=== PATIENT | female | born 1950 | race Two or more races ===

== ENCOUNTER 2022-04-18 09:25 | Outpatient (CLI) | payer MEDICARE, OTHER ==
[2022-04-18] MEDS ORDERED: UREA 10% -AHA 4% CREAM 57 GM TUBE ONE (10:04)
== END 2022-04-18 23:59 | disposition home or self-care (01) ==
LOC: WOU 09:25
PROVIDERS: ATTEND Podiatrist Foot & Ankle Surgery
DX: L60.3 Nail dystrophy (principal); L84 Corns and callosities; L85.3 Xerosis cutis; I10 Essential (primary) hypertension; Z87.891 Personal history of nicotine dependence; Z79.899 Other long term (current) drug therapy
CPT/HCPCS: G0463

== ENCOUNTER 2022-07-04 09:00 | Outpatient (CLI) | payer MEDICARE, OTHER ==
[2022-07-04] MEDS ORDERED: UREA 10% -AHA 4% CREAM 57 GM TUBE ONE (09:15)
== END 2022-07-04 23:59 | disposition home or self-care (01) ==
LOC: WOU 09:00
PROVIDERS: ATTEND Podiatrist Foot & Ankle Surgery
DX: L84 Corns and callosities (principal); L60.3 Nail dystrophy; L85.3 Xerosis cutis; Z79.899 Other long term (current) drug therapy; I10 Essential (primary) hypertension; M79.674 Pain in right toe(s)
CPT/HCPCS: G0463

== ENCOUNTER 2022-09-05 09:20 | Outpatient (CLI) | payer MEDICARE, OTHER | END 2022-09-05 23:59 | disposition home or self-care (01) | LOC: WOU 09:20 | PROVIDERS: ATTEND Podiatrist Foot & Ankle Surgery | DX: L60.3 Nail dystrophy (principal); L84 Corns and callosities; L85.3 Xerosis cutis; M79.675 Pain in left toe(s); M79.674 Pain in right toe(s); Z79.899 Other long term (current) drug therapy | CPT/HCPCS: G0463 ==

== ENCOUNTER 2022-10-31 09:50 | Outpatient (CLI) | payer MEDICARE, OTHER ==
[2022-10-31] MEDS ORDERED: LIDOCAINE HCL/MPF 1% 30 ML VIAL IJ ONE (10:45)
[2022-10-31] MEDS ORDERED: BACI/NEOM/POLY B OINT PKT 1 UDPKT PACKET ONE (11:16)
== END 2022-10-31 23:59 | disposition home or self-care (01) ==
LOC: WOU 09:50
PROVIDERS: ATTEND Podiatrist Foot & Ankle Surgery
DX: L84 Corns and callosities (principal); L60.3 Nail dystrophy; L85.3 Xerosis cutis; M79.675 Pain in left toe(s); M79.674 Pain in right toe(s); Z79.899 Other long term (current) drug therapy
CPT/HCPCS: G0463; A6454; J3490

== ENCOUNTER 2022-11-03 17:50 | Inpatient (IN) | payer MEDICARE, OTHER ==
[~2022-11-03] VITALS: Ht 167.6 cm; Wt 86.2 kg
[2022-11-03 19:00] VITALS: BP 118/69
[2022-11-03] MEDS ORDERED: DONE10TA11 PO (19:00)
[2022-11-03] MEDS ORDERED: SACU1TAB PO (19:00)
[2022-11-03] MEDS ORDERED: FLUT1BLS6 INH (19:00)
[2022-11-03] MEDS ORDERED: HYDR-4076 PO (19:00)
[2022-11-03] MEDS ORDERED: GABA600T12 PO (19:00)
[2022-11-03] MEDS ORDERED: PRAM1TAB7 PO (19:00)
[2022-11-03] MEDS ORDERED: GEMTESA PO (19:00)
[2022-11-03] MEDS ORDERED: IPRA3AMP23 IH (19:00)
[2022-11-03] MEDS ORDERED: HYDR-3980 PO (19:00)
[2022-11-03] MEDS ORDERED: CLON0.5T4 PO (19:00)
--- NOTE | 2022-11-03 19:05 | NUR ---
RN NOTE: ADMITTED A 71-Y/O, FEMALE, FROM [facility]. ADMITTED ON A 5150 HOLD FOR DTS FOR SUICIDAL IDEATION. UPON FACE TO FACE EVALUATION, PATIENT IS ALERT AND ORIENTED X3, PATIENT IS ANXIOUS, RESTLESS, GUARDED, NEEDY, DEMANDING, MANIPULATIVE AND HYPERVERBAL. DENIES SI/HI/AVH AT THIS TIME. SKIN ASSESSMENT DONE. ALL BELONGINGS WERE SCREENED FOR CONTRABAND. PATIENT REFUSED TO SIGN ALL ADMITTING/CONSENT PAPERWORK DUE TO PARANOIA. PATIENT'S RIGHTS WERE DISCUSSED AND BOOKLET WAS GIVEN. CONTACTED DR. HOYOS AND HOSPITALIST NATALIIA CABAN AND INFORMED THEM OF THE ADMISSION. BED IN LOWEST POSITION, LOCKED. SAFETY PRECAUTIONS MAINTAINED. WILL CONTINUE TO MONITOR Q15 MINS FOR MOOD, SAFETY AND BEHAVIOR.
[2022-11-03] MEDS ORDERED: ACETAMINOPHEN 325 MG TABLET PO PRN (20:00)
[2022-11-03] MEDS ORDERED: MAGNESIUM HYDROXIDE 30 ML UDC PO PRN (20:00)
[2022-11-03] MEDS ORDERED: BLOOD SUGAR DIAGNOSTIC 1 EACH STRIP IN ONE (20:00)
[2022-11-03 21:33] VITALS: BP 118/69
[2022-11-03] MEDS ORDERED: IPRATROPIUM NEB FS 0.5 MG/2.5 ML AMPUL.NEB NEB PRN (23:30)
[2022-11-03] MEDS ORDERED: ALBUTEROL FS 2.5 MG/3 ML VIAL.NEB NEB PRN (23:30)
[2022-11-04] MEDS: TEMAZEPAM 7.5 MG CAPSULE PO PRN (00:23)
--- NOTE | 2022-11-04 07:30 | NUR ---
RN OPENING NOTES RECEIVED PATIENT SITTING ON BED AND A/O X3. ON ROOM AIR TOLERATING WELL. NO SOB NOTED. NOT IN DISTRESS. PATIENT IS VERY NEEDY, HYPERVERBAL AND DEMANDING. PATIENT IS CONCERNED ABOUT HER GEMTESA, ENTRESTO AND TRELOGY MEDICATIONS, WILL FOLLOW-UP. AMBULATORY WITH WALKER. DENIES SI/HI AT THIS TIME. SAFETY MEASURES IN PLACED. CALL LIGHT WITHIN REACH. BED ON LOWEST LOCKED POSITION, SIDE RAILS UP X2. WILL CONTINUE TO MONITOR.
[2022-11-04 08:00] VITALS: BP 154/65
--- NOTE | 2022-11-04 08:10 | NUR ---
WOUND CARE CONSULT: PT PRESENTS WITH RT GREAT TOE DRY WOUND WITH SWELLING, PRESENT ON ADMISSION. DR BERNAL CALLED FOR DPM CONSULT. IN AGREEMENT WITH PLAN OF CARE.
[2022-11-04] MEDS: PRAMIPEXOLE DI-HCL 0.25 MG TABLET PO SCH ×2 (08:54→16:33)
[2022-11-04] MEDS: GABAPENTIN 300 MG CAPSULE PO SCH ×3 (08:54→16:33)
[2022-11-04] MEDS: hydrALAZINE HCL 25 MG TABLET PO SCH ×2 (08:55→17:00)
[2022-11-04] MEDS: DONEPEZIL 5 MG TABLET PO SCH (08:55)
[2022-11-04] MEDS: HYDROCODONE/APAP 10/325MG TABLET PO SCH ×3 (08:55→16:30)
[2022-11-04 09:06] LABS: BASOPHILS % (AUTO) 0.2 % (0.0-2.0); EOSINOPHILS % (AUTO) 0.7 % (0.0-6.0); HEMATOCRIT 44 % (33-45); HEMOGLOBIN 14.1 g/dL (11.5-14.8); LYMPHOCYTES % (AUTO) 12.6 % (20.0-44.0); MEAN CORPUSCULAR HGB CONC 32 g/dl (31.0-36.0); MEAN CORPUSCULAR VOLUME 83 fL (82-100); MONOCYTES # (AUTO) 0.6 K/uL (0.1-1.30); MONOCYTES % (AUTO) 7.3 % (2.0-12.0); NEUTROPHILS # (AUTO) 6.6 K/uL (1.8-8.9); NEUTROPHILS % (AUTO) 79.2 % (43.0-81.0); PLATELET COUNT (AUTO) 355 K/uL (150-450); RED BLOOD CELL COUNT(AUTO) 5.28 MIL/uL (4.0-5.2); WHITE BLOOD COUNT (AUTO) 8.3 K/uL (4.3-11.0)
[2022-11-04 09:19] LABS: ALBUMIN 3.9 g/dL (3.4-5.0); BILIRUBIN,TOTAL 0.7 mg/dL (0.2-1.0); CALCIUM, SERUM 9.4 mg/dL (8.5-10.1); CREATININE 0.8 mg/dL (0.6-1.3); MAGNESIUM 2.6 mg/dL (1.8-2.4); POTASSIUM 4.5 mmol/L (3.5-5.1); TOTAL PROTEIN, SERUM 8.6 g/dL (6.4-8.2)
[2022-11-04 09:29] LABS: THYROID STIMULATING HORMONE 3.604 uIU/mL (0.358-3.74)
[2022-11-04] MEDS: DIVALPROEX SODIUM 250 MG TABLET.DR PO SCH ×2 (14:46→16:30)
--- NOTE | 2022-11-04 15:23 | NUR ---
NARAYAN Family Contact: NARAYAN contacted pt's person to notify ([phone]) to gather collateral. Per pt. she stated this is her [facility] caregiver. NARAYAN left a detailed voicemail.
--- NOTE | 2022-11-04 15:23 | NUR ---
NARAYAN Initial Discharge Note: Patient currently resides at [id number] [place] [address]; ([phone]) and would want to return back home. Per pt, she stated that she has a [facility] caregiver Heather ([phone]). NARAYAN will contact pt's caregiver to discuss discharge planning. NARAYAN will work with the MD, family, and treatment team.
--- NOTE | 2022-11-04 15:24 | NUR ---
NARAYAN Clinical Note: Pt placed on a 5150 hold for danger to herself. Pt was brought to the hospital due to sending text messages to family wanting to kill herself. Patient currently resides at [address] [place] [address]; ([phone]) and would want to return back home. Per pt, she stated that she has a [facility] caregiver Heather ([phone]). SW will contact pt's caregiver to discuss discharge planning.
--- NOTE | 2022-11-04 15:24 | NUR ---
Treatment Plan: Pt refused to sign treatment plan and was angry.
[2022-11-04 16:00] VITALS: BP 129/78
[2022-11-04] MEDS: ENTRESTO PO SCH (16:33)
[2022-11-04] MEDS: FLUTICASONE INH SCH (16:55)
[2022-11-04] MEDS: UMECLIDIN INH SCH (16:55)
[2022-11-04] MEDS: VILANTER INH SCH (16:55)
[2022-11-04] MEDS: GEMTESA 75 MG PO SCH (16:55)
--- NOTE | 2022-11-04 18:43 | NUR ---
RN CLOSING NOTES PATIENT RESTING ON BED AND A/O X3. ON ROOM AIR TOLERATING WELL. NO SOB NOTED. NOT IN DISTRESS. PATIENT IS VERY NEEDY, HYPERVERBAL AND DEMANDING. PATIENT'S DAUGHTER IN LAW NAMED SIMONE BROUGHT IN HER HOME MEDS (TRELEGY, GEMTESA AND ENTRESTO). HELD HYDRALAZINE MEDICATION, PATIENT HAD LOW BP. AMBULATORY WITH WALKER. DENIES SI/HI AT THIS TIME. SAFETY MEASURES IN PLACED. CALL LIGHT WITHIN REACH. BED ON LOWEST LOCKED POSITION, SIDE RAILS UP X2. WILL ENDORSE TO NEXT SHIFT FOR SALVADOR.
[2022-11-04 19:48] VITALS: BP 113/68
[2022-11-04] MEDS: OLANZAPINE 2.5 MG TABLET PO SCH (20:35)
[2022-11-05 08:00] VITALS: BP 147/73
[2022-11-05] MEDS: DONEPEZIL 5 MG TABLET PO SCH (08:43)
[2022-11-05] MEDS: GABAPENTIN 300 MG CAPSULE PO SCH ×3 (08:43→16:31)
[2022-11-05] MEDS: DIVALPROEX SODIUM 250 MG TABLET.DR PO SCH ×3 (08:43→16:31)
[2022-11-05] MEDS: HYDROCODONE/APAP 10/325MG TABLET PO SCH ×4 (08:44→17:11)
[2022-11-05] MEDS: hydrALAZINE HCL 25 MG TABLET PO SCH ×2 (08:44→16:32)
[2022-11-05] MEDS: FLUTICASONE INH SCH (08:45)
[2022-11-05] MEDS: VILANTER INH SCH (08:45)
[2022-11-05] MEDS: UMECLIDIN INH SCH (08:45)
[2022-11-05] MEDS: ENTRESTO PO SCH ×2 (08:45→16:30)
[2022-11-05] MEDS: GEMTESA 75 MG PO SCH (09:00)
[2022-11-05] MEDS: PRAMIPEXOLE DI-HCL 0.25 MG TABLET PO SCH ×2 (09:00→16:31)
--- NOTE | 2022-11-05 09:58 | NUR ---
RN NOTES: GEMTESA (HOME MEDS) AND PRAMIPEXOLE IS NOT AVAILABLE CASSETTE AND OMNICELLE. CALLED PHARMACY @0850 SPOKE TO TONY SHE SAID THEY WILL DELIVER IT AND FOLLOW UP 2ND TIME AND STILL PENDING. MEDS GEMTESA (HOME MEDS) AND PRAMIPEXOLE NON ADMIT FOR NOW.
--- NOTE | 2022-11-05 11:06 | NUR ---
RN NOTES: PATIENT HAD EPISODES OF COUGHING,PT IS REQUESTING IF SHE CAN GET A COUGH SYRUP. INFORMED DR. MORENO AND ORDERED ROBITUSSIN 5ML Q 6HRS PRN FOR COUGH. ORDERS NOTED AND CARRIED OUT. INFORMED PATIENT.
[2022-11-05] MEDS: GUAIFENESIN/D-METHORPHAN HB 5 ML UDC PO PRN ×2 (11:14→17:11)
[2022-11-05] MEDS: LORAZEPAM 0.5 MG TABLET PO PRN (13:54)
--- NOTE | 2022-11-05 14:36 | NUR ---
NARAYAN Family Contact: SW spoke to patient's daughter in law ([phone]) and she stated that pt has become difficult at home. She stated that she is the SS caregiver and provides patient care for 27 hours per week. She stated that pt has become extremely labile at home and aggressive. She expressed that pt [facility]. She shared that she also goes to a Day Care center but has not been attending for the past 2 weeks. She reported that pt is welcomed back home. SW did share nursing facility option and daughter in law stated she interested in her going to a SNF. Daughter in law expressed that pt has continuously been calling and wants to put her Mohamud (patient's son) as an emergency contact ([phone]) and does not want to share the number with pt only for staff emergency.
[2022-11-05 16:00] VITALS: BP 118/80
--- NOTE | 2022-11-05 16:11 | NUR ---
RN NOTES: RECEIVED A CALL FROM ROSI ANN [place] (+) MRSA R NARES. INFORMED DR TIFFANIE PATEL ORDERED: BACTROBAN OINTMENT BID X2 WEEKS. ORDERS NOTED AND CARRIED OUT.
--- NOTE | 2022-11-05 16:52 | NUR ---
RN NOTES: DR MORENO CLARIFIED ORDER: BACTROBAN OINTMENT Q 12HRS FOR 5 DAYS. ORDERS NOTED AND CARRIED OUT.
--- NOTE | 2022-11-05 18:25 | NUR ---
RN- CLOSING NOTES PATIENT IS AMBULATING AROUND THE UNIT USING A WALKER. A/O X2-3. PATIENT IS ANXIOUS, NEEDY, AND LABILE. COMPLAINING OF PAIN ON LEFT FOOT, ROUTINE PAIN MEDICATIONS ADMINISTERED. CURRENT PAIN LEVEL OF 6/10 NOTED. MEDICATION COMPLIANT. DENIES SI/HI AT THIS TIME. WILL CONTINUE TO MONITOR Q 15 MINUTES FOR SAFETY AND BEHAVIOR.
[2022-11-05 19:54] VITALS: BP 109/58
--- NOTE | 2022-11-05 20:18 | NUR ---
RN NOTES PATIENT IS IN BED, AWAKE AND RESPONSIVE. UPON ASSESSMENT PATIENT IS IN BED, NOTED EPISODES OF DRY COUGH AND SOB BECAUSE OF COUGHING. BREATHING TREATMENT GIVEN C/C LUCIA OF RESPIRATORY THERAPY AND MEDICATION GIVE. KEPT BED ON MODERATE HIGH BACK REST POSITION. WILL CONTINUE TO MONITOR.
[2022-11-05] MEDS: OLANZAPINE 2.5 MG TABLET PO SCH (20:38)
[2022-11-05] MEDS: TEMAZEPAM 7.5 MG CAPSULE PO PRN (20:39)
[2022-11-05] MEDS: MUPIROCIN OINT 2% 22 GM TUBE NS SCH (20:44)
--- NOTE | 2022-11-06 07:30 | NUR ---
RN OPENING NOTE PATIENT AWAKE IN BED RESTING, A/O X 3, COOPERATIVE, COMPLIANT WITH MEDICATIONS. NO S/S OF PAIN NOTED AT THIS TIME. ON ROOM AIR, BREATHING EVEN UNLABORED, NO DISTRESS OR SHORTNESS OF BREATH NOTED. PATIENT DENIES SUICIDE IDEATIONS AND HOMICIDAL IDEATIONS AT THIS TIME. FALL AND SAFETY MEASURES IN PLACE, BED ALARM ON, BED IN LOW AND LOCK POSITION, CALL LIGHT AND TABLE WITHIN EASY REACH, SIDE RAILS UP X2. WILL CONTINUE TO MONITOR Q15 MIN. WITH THE HELP OF STAFF TO MAINTAIN SAFETY.
[2022-11-06 08:00] VITALS: BP 124/62
[2022-11-06] MEDS: VILANTER INH SCH (08:28)
[2022-11-06] MEDS: UMECLIDIN INH SCH (08:28)
[2022-11-06] MEDS: FLUTICASONE INH SCH (08:28)
[2022-11-06] MEDS: MUPIROCIN OINT 2% 22 GM TUBE NS SCH ×2 (08:28→20:05)
[2022-11-06] MEDS: PRAMIPEXOLE DI-HCL 0.25 MG TABLET PO SCH ×2 (08:29→16:38)
[2022-11-06] MEDS: GABAPENTIN 300 MG CAPSULE PO SCH ×3 (08:30→16:39)
[2022-11-06] MEDS: DIVALPROEX SODIUM 250 MG TABLET.DR PO SCH ×3 (08:30→16:39)
[2022-11-06] MEDS: DONEPEZIL 5 MG TABLET PO SCH (08:30)
[2022-11-06] MEDS: hydrALAZINE HCL 25 MG TABLET PO SCH ×2 (08:30→16:40)
[2022-11-06] MEDS: ENTRESTO PO SCH ×2 (08:31→16:42)
[2022-11-06] MEDS: GEMTESA 75 MG PO SCH (08:31)
[2022-11-06] MEDS: HYDROCODONE/APAP 10/325MG TABLET PO SCH ×3 (08:31→16:39)
[2022-11-06] MEDS: GUAIFENESIN/D-METHORPHAN HB 5 ML UDC PO PRN ×2 (09:37→20:05)
[2022-11-06] MEDS: MAG HYDROX/AL HYDROX/SIMETH 30 ML UDC PO PRN (15:13)
[2022-11-06 16:00] VITALS: BP 102/54
[2022-11-06 19:44] VITALS: BP 118/69
[2022-11-06] MEDS: OLANZAPINE 2.5 MG TABLET PO SCH (20:05)
--- NOTE | 2022-11-06 20:05 | NUR ---
RN NOTE PT ASKED FOR PRN COUGH SYRUP TOLERATED WELL.
--- NOTE | 2022-11-07 07:43 | NUR ---
RN NOTES: NOTED PT. WAS USING HER OWN WALKER, AND PT.WANTS TO BE USED ONLY HER WALKER , PER PT.STATING SINCE I WAS HERE I BEEN USING MY WALKER , IF I USED HOSPITAL WALKER I WILL BE FALL , EXPLINED TO THE PATIENT CANNOT USED THIS WALKER , PT. BEHAVIOUR VERY AGGRESSIVE ARGUMENTATIVE, UNCOOPERTIVE, CHARGE NURSE MADE AWARE .
[2022-11-07 08:00] VITALS: BP 144/96
--- NOTE | 2022-11-07 08:00 | NUR ---
RN NOTES: NOTED PT. WAS USING HER OWN WALKER, AND PT.WANTS TO BE USED ONLY HER WALKER , PER PT.STATING SINCE I WAS HERE I BEEN USING MY WALKER , IF I USED HOSPITAL WALKER I WILL BE FALL , EXPLINED TO THE PATIENT CANNOT USED THIS WALKER ,PT. REFUSED TO USING HOSPITAL WALKER AND PT. BEHAVIOUR VERY AGGRESSIVE ARGUMENTATIVE, UNCOOPERTIVE, CHARGE NURSE MADE AWARE .
[2022-11-07] MEDS: DIVALPROEX SODIUM 250 MG TABLET.DR PO SCH ×3 (08:55→17:08)
[2022-11-07] MEDS: GABAPENTIN 300 MG CAPSULE PO SCH ×3 (08:55→17:08)
[2022-11-07] MEDS: PRAMIPEXOLE DI-HCL 0.25 MG TABLET PO SCH ×2 (08:56→17:09)
[2022-11-07] MEDS: HYDROCODONE/APAP 10/325MG TABLET PO SCH ×3 (08:56→17:09)
[2022-11-07] MEDS: GEMTESA 75 MG PO SCH (08:57)
[2022-11-07] MEDS: DONEPEZIL 5 MG TABLET PO SCH (08:57)
[2022-11-07] MEDS: ENTRESTO PO SCH ×2 (08:57→17:10)
[2022-11-07] MEDS: hydrALAZINE HCL 25 MG TABLET PO SCH ×2 (08:58→17:09)
[2022-11-07] MEDS: UMECLIDIN INH SCH (09:02)
[2022-11-07] MEDS: VILANTER INH SCH (09:02)
[2022-11-07] MEDS: FLUTICASONE INH SCH (09:02)
[2022-11-07] MEDS: MUPIROCIN OINT 2% 22 GM TUBE NS SCH ×2 (09:04→21:23)
[2022-11-07] MEDS: GUAIFENESIN/D-METHORPHAN HB 5 ML UDC PO PRN ×2 (09:18→20:15)
--- NOTE | 2022-11-07 09:19 | NUR ---
RN-NOTES NOTED PATIENT COUGHING ,ROBITUSSIN MD 5ML GIVEN PRN ORDER.
--- NOTE | 2022-11-07 10:28 | NUR ---
RN-NOTES PATIENT REFUSED TO GIVE HER OWN WALKER WITH ALL THE WIRINGS ON IT DESPITE EXPLANATIONS OF THE UNIT AND HOSPITAL POLICIES.PATIENT STATED " MY DOCTOR ALLOW ME TO USE MY OWN WALKER ,OTHERWISE I WILL FALL".BANK ACCOUNTANT DID OFFERED HOSPITAL WALKER BUT PATIENT REFUSED. DR. HOYOS IN THE UNIT AND STATED THAT IT IS OK TOO USE HER OWN WALKER.
--- NOTE | 2022-11-07 11:16 | NUR ---
NARAYAN Note: SW spoke with pt and gave pt option of SNF and pt stated that she needs to go home and take care of her personal issues and take care of her dog. She was tearful and stated no.
[2022-11-07 16:00] VITALS: BP 145/85
[2022-11-07] MEDS: MAG HYDROX/AL HYDROX/SIMETH 30 ML UDC PO PRN (16:36)
--- NOTE | 2022-11-07 16:37 | NUR ---
RN- NOTES MAALOX SUSPENSION ADMINISTERED DUE TO PATIENT COMPLAINTS OF INDIGESTION.
--- NOTE | 2022-11-07 18:31 | NUR ---
RN- CLOSING NOTES PATIENT IS AWAKE IN BED, BREATHING EVEN AND NON LABORED WITH NO S/S OF DISTRESS. PATIENT IS GUARDED, ANXIOUS, AND ISOLATIVE. PATIENT IS MEDICATION COMPLIANT. PATIENT IS VISIBLE ON THE UNIT, AMBULATING WITH WALKER. DENIES SI/HI AT THIS TIME. WILL CONTINUE TO MONITOR Q 15 MINUTES FOR SAFETY AND BEHAVIOR.
--- NOTE | 2022-11-07 19:30 | NUR ---
GPS RN NOTE, RECEIVED PATIENT AWAKE AND IN BED, NO S/S OR COMPLAINTS OF PAIN AT THIS TIME. PATIENT IS DISPLAYING NO S/S OF APPARENT DISTRESS AT THIS TIME. PATIENT BREATHING IS UNLABORED WITH EQUAL RISE AND FALL OF THE CHEST. PATIENT IS ALERT AND ORIENTED X 3 ON ROOM AIR WITH A SPO2 97%. PATIENT IS COMPLIANT WITH MEDICATION, PARANOID AT TIMES, DEMANDING, HYPERVERBAL, AND COOPERATIVE. PATIENT DENIES SUICIDAL AND HOMICIDAL IDEATIONS AT THIS TIME. PATIENT ASSISTED WITH TURNING AND REPOSITIONING Q2HR AND PRN FOR COMFORT AND CIRCULATION. PATIENT HAS NO NEEDS AT THIS TIME. PATIENT EDUCATED ON THE USE OF THE CALL ARIAS. PATIENT BED SIDE RAILS UP X 2 FOR SAFETY. PATIENT BED IS LOCKED AND LOW. WILL CONTINUE TO MONITOR THIS PATIENT Q15 MINUTES WITH THE HELP OF STAFF TO MAINTAIN SAFETY.
[2022-11-07 20:00] VITALS: BP 126/93
--- NOTE | 2022-11-07 20:15 | NUR ---
GPS RN NOTE, PATIENT HAS A COMPLAINT OF COUGH AND IS REQUESTING ROBITUSSIN AT THIS TIME. PATIENT VITAL SIGNS ARE STABLE GAVE ROBITUSSIN DM SYRUP 5ML 1UNIT DOSE PO Q6HR PRN ORDERED. WILL REASSESS AND I WILL CONTINUE TO MONITOR THIS PATIENT WITH THE HELP OF STAFF.
[2022-11-07] MEDS ORDERED: OLANZAPINE 5 MG TABLET PO SCH (21:00)
[2022-11-07] MEDS: TEMAZEPAM 7.5 MG CAPSULE PO PRN (21:14)
--- NOTE | 2022-11-07 21:14 | NUR ---
GPS RN NOTE, PATIENT HAS A COMPLAINT OF NOT BEING ABLE TO SLEEP AND IS REQUESTING RESTORIL AT THIS TIME. PATIENT VITAL SIGNS ARE STABLE. GAVE RESTORIL 7.5MG PO HS PRN ORDERED. WILL REASSESS FOR INSOMNIA AND I WILL CONTINUE TO MONITOR THIS PATIENT WITH THE HELP OF STAFF.
[2022-11-08 08:00] VITALS: BP 127/81
[2022-11-08] MEDS: GABAPENTIN 300 MG CAPSULE PO SCH ×3 (08:29→16:15)
[2022-11-08] MEDS: DIVALPROEX SODIUM 250 MG TABLET.DR PO SCH ×2 (08:29→12:26)
[2022-11-08] MEDS: DONEPEZIL 5 MG TABLET PO SCH (08:29)
[2022-11-08] MEDS: HYDROCODONE/APAP 10/325MG TABLET PO SCH ×3 (08:30→16:15)
[2022-11-08] MEDS: VILANTER INH SCH (08:31)
[2022-11-08] MEDS: MUPIROCIN OINT 2% 22 GM TUBE NS SCH ×2 (08:31→20:16)
[2022-11-08] MEDS: FLUTICASONE INH SCH (08:31)
[2022-11-08] MEDS: UMECLIDIN INH SCH (08:31)
--- NOTE | 2022-11-08 09:18 | NUR ---
Court Notification: NARAYAN contacted pt's daughter in law Heather ([phone]) and left a voicemail of [phone] hearing today.
--- NOTE | 2022-11-08 10:00 | NUR ---
SNF Referral: NARAYAN sent clinicals to [facility] [phone], to Sophia nino for placement. SW sent H & P, progress notes, and medication list.
[2022-11-08] MEDS: GEMTESA 75 MG PO SCH (10:21)
[2022-11-08] MEDS: ENTRESTO PO SCH ×2 (10:22→16:22)
[2022-11-08] MEDS: hydrALAZINE HCL 25 MG TABLET PO SCH ×2 (10:25→16:23)
[2022-11-08] MEDS: PRAMIPEXOLE DI-HCL 0.25 MG TABLET PO SCH ×2 (10:25→16:14)
[2022-11-08] MEDS: LORAZEPAM 0.5 MG TABLET PO PRN (14:09)
--- NOTE | 2022-11-08 14:13 | NUR ---
RN-NOTES PATIENT CRYING AND REQUESTING FOR MEDICATION TO CALM HER DOWN. ATIVAN 0.5MG P.O GIVEN PRN ORDER. WILL CONT. MONITORING FOR SAFETY AND BEHAVIOR.
--- NOTE | 2022-11-08 15:15 | NUR ---
RN-NOTES PATIENT IN THE DAY ROOM WATCHING TV,CALM,NO ACUTE DISTRESS NOTED.
--- NOTE | 2022-11-08 15:56 | NUR ---
Court Hearing: Patient's court hearing for [id number] hearing was today and it was upheld for GD.
[2022-11-08 16:00] VITALS: BP 118/67
--- NOTE | 2022-11-08 16:01 | NUR ---
SNF Contact: SW spoke with [facility] [phone], to Sophia nino who stated pt is accepted.
[2022-11-08] MEDS: DIVALPROEX SODIUM 500 MG TABLET.DR PO SCH (16:14)
--- NOTE | 2022-11-08 17:18 | NUR ---
RN-NOTES PATIENT VISIBLE IN THE UNIT ,A/O X3 , NO ACUTE DISTRESS NOTED. COMPLIANT WITH MEDICATIONS. NOTED WITH EPISODE OF CRYING BUT ABLE TO VERBALIZED FEELINGS AND CONCERN TO THE STAFF.PATIENT USING HER OWN WALKER TO AMBULATE.ALL NEEDS ATTENDED AND ANTICIPATED WILL CONT. MONITORING FOR SAFETY AND BEHAVIOR.WILL ENDORSE TO INCOMING NURSE FOR THE CONTINUITY OF CARE.
--- NOTE | 2022-11-08 19:35 | NUR ---
RN NOTES: RECEIVED PATIENT WALKING AROUND THE UNIT , A/OX3. NO S/SX OF ACUTE DISTRESS NOTED. PATIENT REMAINS EASILY AGITATED,DISORGNIZED, HYPERVERBAL, NEEDY , DEMENDANING MED COMPLIANT, COOPERATIVE TO CARE. DENIES SI/HI/AVH AT THIS TIME. SAFETY PRECAUTIONS MAINTAINED. WILL CONTINUE TO MONITOR Q15MIN ROUNDS FOR SAFETY AND BEHAVIOR.
--- NOTE | 2022-11-08 19:51 | NUR ---
RN NOTES: RECEIVED PATIENT WALKING AROUND THE UNIT , A/OX3. NO S/SX OF ACUTE DISTRESS NOTED. PATIENT REMAINS EASILY AGITATED,DISORGNIZED, HYPERVERBAL, NEEDY , DEMENDANING MED COMPLIANT, PT. USING HER OWN WALKER , ENCOURAGED TO VERBALIZED ANY FEELING OR CONCERN COOPERATIVE TO CARE. DENIES SI/HI/AVH AT THIS TIME. SAFETY PRECAUTIONS MAINTAINED. WILL CONTINUE TO MONITOR Q15MIN ROUNDS FOR SAFETY AND BEHAVIOR.
[2022-11-08] MEDS: GUAIFENESIN/D-METHORPHAN HB 5 ML UDC PO PRN (20:13)
[2022-11-08] MEDS: OLANZAPINE 5 MG TABLET PO SCH (20:15)
[2022-11-08 20:29] VITALS: BP 133/90
--- NOTE | 2022-11-09 06:32 | NUR ---
RN NOTES: RESTING IN ROOM AND 8 HOURS OF SLEEP , A/OX3 , ABLE TO MAKE NEEDS KNOWN. NO S/S OF ACUTE DISTRESS NOTED. PATIENT REMAINS EASILY, AGITATED, PARANOID DISORGANIZED, NEEDY, HYPERVERBAL , BUT MED COMPLIANT. ALL NEEDS ATTENDED AND ANTICIPATED DENIES SI/HI AT THIS TIME. SAFETY PRECAUTIONS MAINTAINED. WILL CONTINUITY WITH CARE .
[2022-11-09 08:00] VITALS: BP_SYST 119; BP_SYST 143; BP_DIAS 68; BP_DIAS 88
[2022-11-09] MEDS: DIVALPROEX SODIUM 250 MG TABLET.DR PO SCH ×2 (08:09→12:18)
[2022-11-09] MEDS: GABAPENTIN 300 MG CAPSULE PO SCH ×3 (08:09→16:30)
[2022-11-09] MEDS: HYDROCODONE/APAP 10/325MG TABLET PO SCH ×3 (08:10→16:31)
[2022-11-09] MEDS: DONEPEZIL 5 MG TABLET PO SCH (08:10)
[2022-11-09] MEDS: PRAMIPEXOLE DI-HCL 0.25 MG TABLET PO SCH ×2 (08:10→16:31)
[2022-11-09] MEDS: ENTRESTO PO SCH ×2 (08:11→16:32)
[2022-11-09] MEDS: hydrALAZINE HCL 25 MG TABLET PO SCH ×2 (08:11→16:30)
[2022-11-09] MEDS: VILANTER INH SCH (08:15)
[2022-11-09] MEDS: MUPIROCIN OINT 2% 22 GM TUBE NS SCH ×2 (08:15→20:42)
[2022-11-09] MEDS: FLUTICASONE INH SCH (08:15)
[2022-11-09] MEDS: UMECLIDIN INH SCH (08:15)
[2022-11-09] MEDS: GEMTESA 75 MG PO SCH (10:14)
[2022-11-09] MEDS ORDERED: FIXODENT DENTURE ADHESIVE CREAM TUBE MM PRN (12:30)
[2022-11-09 16:00] VITALS: BP 142/80
[2022-11-09] MEDS: DIVALPROEX SODIUM 500 MG TABLET.DR PO SCH (16:30)
--- NOTE | 2022-11-09 18:13 | NUR ---
RN-NOTES PATIENT VISIBLE IN THE UNIT ,A/O X3 , NO ACUTE DISTRESS NOTED. COMPLIANT WITH MEDICATIONS. PATIENT ABLE TO VERBALIZED FEELINGS AND CONCERN TO THE STAFF.PATIENT USING HER OWN WALKER TO AMBULATE.ALL NEEDS ATTENDED AND ANTICIPATED WILL CONT. MONITORING FOR SAFETY AND BEHAVIOR.WILL ENDORSE TO INCOMING NURSE FOR THE CONTINUITY OF CARE.
[2022-11-09] MEDS: MAG HYDROX/AL HYDROX/SIMETH 30 ML UDC PO PRN (18:54)
--- NOTE | 2022-11-09 18:56 | NUR ---
RN-NOTES PATIENT C/O INDIGESTION AND REQUESTING FOR MAALOX. MAALOX 30ML GIVEN PRN ORDER. WILL ENDORSE TO THE INCOMING NURSE FOR THE CONTINUITY OF CARE.
--- NOTE | 2022-11-09 19:35 | NUR ---
RN NOTES: RECEIVED PATIENT WALKING AROUND THE UNIT , A/OX3. NO S/SX OF ACUTE DISTRESS NOTED. PATIENT REMAINS EASILY AGITATED,DISORGNIZED, HYPERVERBAL, NEEDY , DEMENDANING MED COMPLIANT, PT. USING HER OWN WALKER PER MD BERRY , ENCOURAGED TO VERBALIZED ANY FEELING OR CONCERN COOPERATIVE TO CARE. DENIES SI/HI/AVH AT THIS TIME. SAFETY PRECAUTIONS MAINTAINED. WILL CONTINUE TO MONITOR Q15MIN ROUNDS FOR SAFETY AND BEHAVIOR.
[2022-11-09 19:50] VITALS: BP 138/76
[2022-11-09] MEDS: GUAIFENESIN/D-METHORPHAN HB 5 ML UDC PO PRN (20:07)
[2022-11-09] MEDS: OLANZAPINE 5 MG TABLET PO SCH (20:36)
[2022-11-10 08:00] VITALS: BP 139/90
[2022-11-10] MEDS: DIVALPROEX SODIUM 250 MG TABLET.DR PO SCH ×2 (08:31→12:45)
[2022-11-10] MEDS: hydrALAZINE HCL 25 MG TABLET PO SCH ×2 (09:43→17:00)
[2022-11-10] MEDS: DONEPEZIL 5 MG TABLET PO SCH (09:43)
[2022-11-10] MEDS: PRAMIPEXOLE DI-HCL 0.25 MG TABLET PO SCH ×2 (09:44→18:07)
[2022-11-10] MEDS: MUPIROCIN OINT 2% 22 GM TUBE NS SCH ×2 (09:44→20:16)
[2022-11-10] MEDS: GABAPENTIN 300 MG CAPSULE PO SCH ×3 (09:45→18:05)
[2022-11-10] MEDS: GEMTESA 75 MG PO SCH (09:45)
[2022-11-10] MEDS: ENTRESTO PO SCH ×2 (09:45→18:17)
[2022-11-10] MEDS: UMECLIDIN INH SCH (09:46)
[2022-11-10] MEDS: VILANTER INH SCH (09:46)
[2022-11-10] MEDS: FLUTICASONE INH SCH (09:46)
[2022-11-10] MEDS: HYDROCODONE/APAP 10/325MG TABLET PO SCH ×3 (09:48→18:05)
[2022-11-10 16:00] VITALS: BP 107/68
[2022-11-10] MEDS: DIVALPROEX SODIUM 500 MG TABLET.DR PO SCH (18:07)
--- NOTE | 2022-11-10 18:51 | NUR ---
RN NOTES: PATIENT IS CALM AND COOPERATIVE WITHIN THE SHIFT, NO EPISODE OF RESTLESSNESS/AGITATION NOTED. ABLE TO MAKE NEEDS KNOWN. PATIENT SOCIALIZED WITH OTHER PATIENTS WELL. WILL ENDORSE SALVADOR TO INTERNET ASSESSOR.
[2022-11-10 20:00] VITALS: BP 136/75
[2022-11-10] MEDS: OLANZAPINE 5 MG TABLET PO SCH (20:17)
--- NOTE | 2022-11-10 20:59 | NUR ---
RN note: Patient refused skin /wound reassessment. attempted 3x but still refusing.
[2022-11-11 08:00] VITALS: BP 145/74
[2022-11-11] MEDS: hydrALAZINE HCL 25 MG TABLET PO SCH ×2 (08:33→17:50)
[2022-11-11] MEDS: GABAPENTIN 300 MG CAPSULE PO SCH ×3 (08:34→17:49)
[2022-11-11] MEDS: HYDROCODONE/APAP 10/325MG TABLET PO SCH ×3 (08:34→17:49)
[2022-11-11] MEDS: DIVALPROEX SODIUM 250 MG TABLET.DR PO SCH ×2 (08:34→13:32)
[2022-11-11] MEDS: DONEPEZIL 5 MG TABLET PO SCH (08:34)
[2022-11-11] MEDS: PRAMIPEXOLE DI-HCL 0.25 MG TABLET PO SCH ×2 (08:35→17:49)
[2022-11-11] MEDS: ENTRESTO PO SCH ×2 (08:37→17:52)
[2022-11-11] MEDS: GEMTESA 75 MG PO SCH (08:37)
[2022-11-11] MEDS: VILANTER INH SCH (08:38)
[2022-11-11] MEDS: UMECLIDIN INH SCH (08:38)
[2022-11-11] MEDS: FLUTICASONE INH SCH (08:38)
[2022-11-11 16:00] VITALS: BP 154/91
[2022-11-11] MEDS: DIVALPROEX SODIUM 500 MG TABLET.DR PO SCH (17:49)
[2022-11-11 19:34] VITALS: BP 119/75
[2022-11-11] MEDS: OLANZAPINE 5 MG TABLET PO SCH (20:19)
[2022-11-12 08:00] VITALS: BP 130/78
[2022-11-12] MEDS: DIVALPROEX SODIUM 250 MG TABLET.DR PO SCH ×2 (08:18→13:53)
--- NOTE | 2022-11-12 08:48 | NUR ---
NARAYAN Note: SW spoke with patient about placement. SW notified pt about being accepted at [facility] and she was agreeable of going to the nursing facility.
--- NOTE | 2022-11-12 08:49 | NUR ---
NARAYAN Family Contact: SW contacted daughter in law ([phone]) and left a voicemail of pt's discharge plan. Accepted at [facility] and pt is agreeable.
[2022-11-12] MEDS: GEMTESA 75 MG PO SCH (09:00)
[2022-11-12] MEDS: ENTRESTO PO SCH ×2 (09:00→17:08)
[2022-11-12] MEDS: VILANTER INH SCH (09:01)
[2022-11-12] MEDS: FLUTICASONE INH SCH (09:01)
[2022-11-12] MEDS: UMECLIDIN INH SCH (09:01)
[2022-11-12] MEDS: PRAMIPEXOLE DI-HCL 0.25 MG TABLET PO SCH ×2 (09:02→17:06)
[2022-11-12] MEDS: DONEPEZIL 5 MG TABLET PO SCH (09:02)
[2022-11-12] MEDS: hydrALAZINE HCL 25 MG TABLET PO SCH ×2 (09:02→17:06)
[2022-11-12] MEDS: GABAPENTIN 300 MG CAPSULE PO SCH ×3 (09:03→17:06)
[2022-11-12] MEDS: HYDROCODONE/APAP 10/325MG TABLET PO SCH ×3 (09:03→17:06)
[2022-11-12 16:00] VITALS: BP 124/73
[2022-11-12] MEDS: DIVALPROEX SODIUM 500 MG TABLET.DR PO SCH (17:06)
[2022-11-12 19:57] VITALS: BP 99/59
[2022-11-12] MEDS: OLANZAPINE 5 MG TABLET PO SCH (20:31)
[2022-11-12] MEDS: TEMAZEPAM 7.5 MG CAPSULE PO PRN (20:32)
[2022-11-13 08:00] VITALS: BP 132/69
--- NOTE | 2022-11-13 08:09 | NUR ---
Discharge Note: Patient will be discharged to retirement facility [facility], [place] [address]; ). Please arrange transportation at 1PM. Instructional Design Consultant spoke with Sophia poultry trimmer at [facility]; ([phone], who stated patient will be accepted today. Pts daughter in law Heather ([phone]) is pts SS caregiver and provides 27 hours of care per week is aware. Patient is alert and oriented x3 and is unable to plan for self-care. Patient denies any suicidal or homicidal ideations. Patient is aware and agreeable with discharge plans. Patient will continue to follow-up with (psychiatrist) Dr. Duckworth [address] [facility] [address], [place] [address]; ([phone]) and (squad boss) Dr. Haines [address] [facility] [address], [place] [address]; ([phone]). Patient presents with euthymic and congruent mood. Addendum: 11/13/22 at 0811 by NARAYAN SANDOVAL Disregard discharge, this is for 11/14, .
[2022-11-13] MEDS: DIVALPROEX SODIUM 250 MG TABLET.DR PO SCH ×2 (08:28→12:16)
[2022-11-13] MEDS: HYDROCODONE/APAP 10/325MG TABLET PO SCH ×3 (08:28→17:40)
[2022-11-13] MEDS: GABAPENTIN 300 MG CAPSULE PO SCH ×3 (08:29→17:40)
[2022-11-13] MEDS: PRAMIPEXOLE DI-HCL 0.25 MG TABLET PO SCH ×2 (08:29→17:44)
[2022-11-13] MEDS: DONEPEZIL 5 MG TABLET PO SCH (08:29)
[2022-11-13] MEDS: hydrALAZINE HCL 25 MG TABLET PO SCH ×2 (08:29→17:40)
[2022-11-13] MEDS: UMECLIDIN INH SCH (08:30)
[2022-11-13] MEDS: GEMTESA 75 MG PO SCH (08:30)
[2022-11-13] MEDS: ENTRESTO PO SCH ×2 (08:30→17:41)
[2022-11-13] MEDS: FLUTICASONE INH SCH (08:30)
[2022-11-13] MEDS: VILANTER INH SCH (08:30)
[2022-11-13 16:00] VITALS: BP 148/50
[2022-11-13] MEDS: DIVALPROEX SODIUM 500 MG TABLET.DR PO SCH (17:47)
[2022-11-13 20:21] VITALS: BP 112/73
[2022-11-13] MEDS: OLANZAPINE 5 MG TABLET PO SCH (20:30)
[2022-11-14 08:00] VITALS: BP_SYST 127; BP_SYST 149; BP_DIAS 72; BP_DIAS 87
[2022-11-14 08:39] VITALS: BP 127/72
[2022-11-14] MEDS: LORAZEPAM 0.5 MG TABLET PO PRN (08:39)
[2022-11-14] MEDS: DONEPEZIL 5 MG TABLET PO SCH (08:39)
[2022-11-14] MEDS: PRAMIPEXOLE DI-HCL 0.25 MG TABLET PO SCH (08:39)
[2022-11-14] MEDS: hydrALAZINE HCL 25 MG TABLET PO SCH (08:39)
[2022-11-14] MEDS: GABAPENTIN 300 MG CAPSULE PO SCH ×2 (08:39→12:37)
[2022-11-14] MEDS: HYDROCODONE/APAP 10/325MG TABLET PO SCH ×2 (08:40→12:37)
[2022-11-14] MEDS: DIVALPROEX SODIUM 250 MG TABLET.DR PO SCH ×2 (08:41→12:37)
--- NOTE | 2022-11-14 08:42 | NUR ---
SW Discharge Note: Patient will be discharged to intermediate facility [facility], [place] [address]; ). Please arrange transportation at 1PM. Processing Rep spoke with Sophia resident program specialist at [facility]; ([phone], who stated patient will be accepted today. Pts daughter in law Heather ([phone]) is pts [facility] caregiver and provides 27 hours of care per week is aware. Patient is alert and oriented x3 and is unable to plan for self-care. Patient denies any suicidal or homicidal ideations. Patient is aware and agreeable with discharge plans. Patient will continue to follow-up with (psychiatrist) Dr. Duckworth [address] [facility] [address], [place] [address]; ([phone]) and (journeyman level acoustic analyst) Dr. Haines [address] [facility] [address], [place] [address]; ([phone]). Patient presents with euthymic and congruent mood.
[2022-11-14] MEDS: FLUTICASONE INH SCH (08:45)
[2022-11-14] MEDS: ENTRESTO PO SCH (08:45)
[2022-11-14] MEDS: UMECLIDIN INH SCH (08:45)
[2022-11-14] MEDS: GEMTESA 75 MG PO SCH (08:45)
[2022-11-14] MEDS: VILANTER INH SCH (08:45)
--- NOTE | 2022-11-14 10:54 | NUR ---
Dr. Duckworth gave an order to d/c hold and d/c to [facility] and to follow up with psych and medical doctors. Psychiatrist ordered to continue same meds including prn. Dr. Cadet made aware of the discharge and ordered to continue same meds including prn in the facility.
--- NOTE | 2022-11-14 13:15 | NUR ---
RN- DISCHARGE NOTE PATIENT DISCHARGED IN STABLE CONDITION. COMPLIANT WITH MEDICATIONS AND COOPERATIVE WITH TREATMENT PLANS. PATIENT DENIES SUICIDAL/HOMICIDAL IDEATION AND AUDITORY/VISUAL HALLUCINATIONS. BEHAVIOR IMPROVED, PSYCHIATRIC TREATMENT PLANS MET, MEDICAL TREATMENT PLANS DEFERRED FOR CONTINUAL MONITORING. EDUCATED PATIENT ABOUT AFTER CARE PLAN AND COPY PROVIDED. RETURNED ALL PERSONAL BELONGINGS TO PATIENT. MEDICATIONS RECONCILED WITH PSYCHIATRIST DR. HOYOS AND RECORDS MANAGEMENT ASSOCIATE DR. MORENO. DR. HOYOS DISCONTINUED HOLD AND DISCHARGED TO [facility], [address] [place] [address]. REPORT GIVEN TO BHANU XIAO AT [facility] FOR CONTINUITY OF CARE. PATIENT SIGNED ALL DISCHARGE PAPERWORK. PATIENT REFUSED WOUND PICTURES. PATIENT WITHOUT DISTRESS, VITAL SIGNS TAKEN, B/P 164/73, P 98, R 18, O2 SAT 99% ON ROOM AIR. PATIENT LEFT UNIT AT 1315 VIA AMBULANCE ON A GURNEY.
--- NOTE | 2022-11-14 13:37 | NUR ---
RN- NOTES FOLLOW UP FOR [facility] NOT DONE DUE TO PATIENT DISCHARGED AT 1315.
== END 2022-11-14 13:15 | DRG 885 ==
LOC: GPS 18:36
PROVIDERS: ADMIT Psychiatry & Neurology Psychosomatic Medicine; ATTEND Nurse Practitioner Family
DX: F31.9 Bipolar disorder, unspecified (principal); N17.0 Acute kidney failure with tubular necrosis; R45.851 Suicidal ideations; I10 Essential (primary) hypertension; E78.5 Hyperlipidemia, unspecified; R41.9 Unspecified symptoms and signs involving cognitive functions and awareness; M54.9 Dorsalgia, unspecified; J44.9 Chronic obstructive pulmonary disease, unspecified; L84 Corns and callosities; I73.9 Peripheral vascular disease, unspecified; R73.9 Hyperglycemia, unspecified; R23.4 Changes in skin texture; Z20.822 Contact with and (suspected) exposure to COVID-19
CPT/HCPCS: 36415; 76770-TC; 80053-TC; 80061-TC; 80164-TC; 82962-TC; 83735-TC; 84443-TC; 85025-TC; 87081-TC; 97110-TC; 97112-TC; 97116-TC; 97530-TC; A6253

== ENCOUNTER 2022-12-12 09:20 | Outpatient (CLI) | payer MEDICARE, OTHER ==
[~2022-12-12 09:20] MED LIST: CLON0.5T4 PO; DONE10TA11 PO; FLUT1BLS6 INH; GABA600T12 PO; GEMTESA PO; HYDR-3980 PO; HYDR-4076 PO; IPRA3AMP23 IH; PRAM1TAB7 PO; SACU1TAB PO
[2022-12-12] MEDS ORDERED: LIDOCAINE 2% 20 ML MDV ONE (09:32)
[2022-12-12] MEDS ORDERED: BACI/NEOM/POLY B OINT PKT 1 UDPKT PACKET ONE (10:02)
== END 2022-12-12 23:59 | disposition home or self-care (01) ==
LOC: WOU 09:20
PROVIDERS: ATTEND Podiatrist Foot & Ankle Surgery
DX: L84 Corns and callosities (principal); L60.3 Nail dystrophy; L85.3 Xerosis cutis; M79.675 Pain in left toe(s); M79.674 Pain in right toe(s)
CPT/HCPCS: G0463; J3490

== ENCOUNTER 2023-01-16 09:56 | Outpatient (CLI) | payer MEDICARE, OTHER ==
[2023-01-16] MEDS ORDERED: LIDOCAINE HCL/MPF 1% 30 ML VIAL IJ ONE (10:12)
[2023-01-16] MEDS ORDERED: ETHYL CHLORIDE SPRAY 1 EA BOTTLE TP ONE (10:30)
== END 2023-01-16 23:59 | disposition home or self-care (01) ==
LOC: WOU 09:56
PROVIDERS: ATTEND Podiatrist Foot & Ankle Surgery
DX: L84 Corns and callosities (principal); L60.3 Nail dystrophy; L85.3 Xerosis cutis; M79.675 Pain in left toe(s); M79.674 Pain in right toe(s); I10 Essential (primary) hypertension
CPT/HCPCS: G0463; J3490

== ENCOUNTER 2023-01-30 10:23 | Outpatient (CLI) | payer MEDICARE, OTHER ==
[2023-01-30] MEDS ORDERED: ETHYL CHLORIDE SPRAY 1 EA BOTTLE TP PRN (11:00)
== END 2023-01-30 23:59 | disposition home or self-care (01) ==
LOC: WOU 10:23
PROVIDERS: ATTEND Podiatrist Foot & Ankle Surgery
DX: L84 Corns and callosities (principal); L60.3 Nail dystrophy; L85.3 Xerosis cutis; M79.675 Pain in left toe(s); M79.674 Pain in right toe(s); I10 Essential (primary) hypertension
CPT/HCPCS: G0463